=== PATIENT | male | born 1955 | race Two or more races ===

== ENCOUNTER → 2017-12-20 | Outpatient (CLI) | payer OTHER | LOC: CIMAGING 08:11 | DX: K57.30 Diverticulosis of large intestine without perforation or abscess without bleeding (principal); M62.89 Other specified disorders of muscle; N20.0 Calculus of kidney; Z85.51 Personal history of malignant neoplasm of bladder; Z87.19 Personal history of other diseases of the digestive system | CPT/HCPCS: 74261-PO ==